=== PATIENT | male | born 1955 ===

== ENCOUNTER 2020-04-30 08:06 | Outpatient (CLI) | payer OTHER | END 2020-04-30 08:58 | disposition home or self-care (01) | LOC: EKG 08:06 | PROVIDERS: ATTEND Surgery | DX: I10 Essential (primary) hypertension (principal) ==

== ENCOUNTER 2020-05-01 10:15 | Inpatient (IN) | payer OTHER ==
[~2020-05-01] VITALS: Ht 170.2 cm; Wt 81.6 kg
[2020-05-09] MEDS ORDERED: PERCOCET 5-3251 EACH PO (13:16)
[2020-05-09] MEDS ORDERED: PRILOSEC OTC20 MG PO (13:16)
== END 2020-05-09 16:05 | disposition home or self-care (01) | DRG 331 ==
LOC: O/R 05-06 06:10 → SURG 05-06 06:10 → O/R 05-06 10:15 → SURH 05-06 10:15 → SURG 05-06 13:28
PROVIDERS: ADMIT Surgery; ATTEND Surgery
PROC: 0D1B4Z4 Bypass Ileum to Cutaneous, Percutaneous Endoscopic Approach (ICD-10-PCS; 2020-05-06)
PROC: 07BC4ZX Excision of Pelvis Lymphatic, Percutaneous Endoscopic Approach, Diagnostic (ICD-10-PCS; 2020-05-06)
PROC: 0DTP4ZZ Resection of Rectum, Percutaneous Endoscopic Approach (ICD-10-PCS; principal; 2020-05-06 13:15)
DX: C20 Malignant neoplasm of rectum (principal); I10 Essential (primary) hypertension

== ENCOUNTER 2020-08-20 08:05 | Day surgery (SDC) | payer OTHER ==
[~2020-08-20 08:05] MED LIST: PERCOCET 5-3251 EACH PO; PRILOSEC OTC20 MG PO
== END 2020-08-20 12:05 | disposition home or self-care (01) ==
LOC: AMB-ENDOS 08:05 → CIR.AMB 09:45 → AMB-ENDOS 12:05
PROVIDERS: ATTEND Surgery
DX: K62.89 Other specified diseases of anus and rectum (principal); K62.4 Stenosis of anus and rectum; Z20.828 Contact with and (suspected) exposure to other viral communicable diseases

== ENCOUNTER 2020-09-15 09:30 | Inpatient (IN) | payer OTHER ==
[~2020-09-15] VITALS: Ht 170.2 cm; Wt 85.7 kg
[2020-09-15] MEDS ORDERED: GLYCOTROL CAPS1 EACH PO (11:40)
[2020-09-15] MEDS ORDERED: VITAMIN D310 MCG/1 M PO (11:41)
[2020-09-15] MEDS ORDERED: MULTI-VITAMIN1 EACH PO (11:41)
[2020-09-24] MEDS ORDERED: PERCOCET 5-3251 EACH PO (13:12)
[2020-09-24] MEDS ORDERED: INTESTINEX680 M1 PO (13:12)
== END 2020-09-24 14:45 | disposition home or self-care (01) | DRG 330 ==
LOC: O/R 09-21 08:10 → SURH 09-21 08:10
PROVIDERS: ADMIT Surgery; ATTEND Surgery
PROC: 0DQB4ZZ Repair Ileum, Percutaneous Endoscopic Approach (ICD-10-PCS; principal; 2020-09-21 11:00)
DX: Z43.2 Encounter for attention to ileostomy (principal); K91.30 Postprocedural intestinal obstruction, unspecified as to partial versus complete; C20 Malignant neoplasm of rectum; Z20.828 Contact with and (suspected) exposure to other viral communicable diseases; F43.29 Adjustment disorder with other symptoms

== ENCOUNTER → 2021-07-01 07:55 | Outpatient (CLI) | payer OTHER ==
[~2021-07-01 07:55] MED LIST changes: +GLYCOTROL CAPS1 EACH PO; +INTESTINEX680 M1 PO; +MULTI-VITAMIN1 EACH PO; +VITAMIN D310 MCG/1 M PO
== END | disposition home or self-care (01) ==
LOC: LAB 07:55
PROVIDERS: ATTEND Surgery
DX: K62.4 Stenosis of anus and rectum (principal); Z85.048 Personal history of other malignant neoplasm of rectum, rectosigmoid junction, and anus

== ENCOUNTER 2021-08-26 07:18 | Day surgery (SDC) | payer OTHER | END 2021-08-26 12:45 | disposition home or self-care (01) | LOC: AMB-ENDOS 07:18 | PROVIDERS: ATTEND Surgery | DX: D12.2 Benign neoplasm of ascending colon (principal); D12.3 Benign neoplasm of transverse colon; D12.4 Benign neoplasm of descending colon; Z20.822 Contact with and (suspected) exposure to COVID-19 ==